=== PATIENT | female | born 1955 | race Caucasian/White ===

== ENCOUNTER 2019-05-26 14:29 | Day surgery (SDC) | payer OTHER, SELFPAY ==
[2019-05-26] VITALS (13 sets, daily range): BP systolic 107–169; BP diastolic 59–113; PULSE 69–92; RESP 16–24; TEMP 36.2–36.6; O2SAT 96–100
--- NOTE | ~2019-05-26 | XR_ITS ---
EXAMINATION: XR chest 2V DATE: 05/26/2019 15:20 INDICATION: Food impaction TECHNIQUE: frontal and lateral views of the chest were obtained. COMPARISON: Chest radiograph dated 11/16/2015 FINDINGS: The lungs remain clear with no focal airspace opacities, pulmonary edema, pleural effusion or pneumot horax. The cardiomediastinal silhouette is normal. Lucent trachea appears patent particularly on the lateral projection. Bilateral peripherally calcified breast implants. Moderate thoracic spondylosis. IMPRESSION: 1. No acute cardiopulmonary disease. Reviewed, dictated and finalized at location A. COLOGIST
--- NOTE | ~2019-05-26 | CT_ITS ---
EXAMINATION: CT chest w con DATE: 05/26/2019 19:07 INDICATION: Esophageal tear. Evaluate for pneumomediastinum. TECHNIQUE: Computed tomography (CT) of the chest was performed with 75 cc Omnipaque 350 intravenous c ontrast. The dose-length product was 167.31 mGy-cm. Automated exposure control and iterative reconstr uction technique were employed. COMPARISON: Chest x-ray dated 05/26/2019 FINDINGS: There is extensive pneumomediastinum extending from the visualized aspects of the neck surr ounding the thyroid gland and carotid arteries extending inferiorly surrounding the esophagus with ga s involving the proximal gastric wall. Site of esophageal perforation cannot definitely be visualized . There are calcified bilateral breast implants. Heart size is normal. Small pleural effusions. No thor acic lymphadenopathy. Debris is noted in the distal esophagus. Fatty infiltration of the liver. Calcified granuloma right lung base. Left lower lobe airspace diseas e, most likely atelectasis. There is apical pleural thickening/scarring. No suspicious pulmonary nodu les or masses. IMPRESSION: 1. Extensive pneumomediastinum, presumably from known esophageal perforation. Abnormal gas extends in to the proximal gastric wall as well as the neck superiorly. 2: Small pleural effusions. Dr. Bedolla discussed with Dr. Brad Rider MD at 05/26/2019 19:24 [employer] MECH[employer]IC. Reviewed, dictated and finalized at location A. NE MECHANIC IMPRESSION: 1. Extensive pneumomediastinum, presumably from known esophageal perforation. A bnormal gas extends into the proximal gastric wall as well as the neck superior ly. 2: Small pleural effusions. Dr. Bedolla discussed with Dr. Brad Rider MD at 05/26/2019 19:24 MARINE MECH[employer]IC.
--- NOTE | 2019-05-26 14:46 | MISC_ITS ---
Emergency Room Visit Note Original report was for two visits for the same patient [id number], added addenda were moved to correct visit, [id number] on 06/10/19. Original report was signed by Reyanldo Hsieh MD on 05/26/19 at 1928. HPI - Skin/Abscess/Foreign Bdy General Chief complaint: Skin/Abscess/Foreign Body Stated complaint: ?FB THROAT Time Seen by Provider: 05/26/19 14:46 Source: patient Mode of arrival: EMS Limitations: no limitations History of Present Illness HPI narrative: This is a 63 year old female that presents to the ER for food impaction. Reports she was eating turkey just prior to arrival. Reports feeling of it being stuck. Reports she has been vomiting up small pieces of turkey since. Reports history of trouble swallowing in the past, but is usually able to get the food back up. Reports pain in her epigastrium. Denies shortness of breath. Related Data Home Medications Medication Instructions Recorded Confirmed acyclovir 400 mg PO DAILY 05/26/19 05/26/19 albuterol sulfate [ProAir HFA] 1 inh INHALATION QID 05/26/19 05/26/19 duloxetine 30 mg PO DAILY 05/26/19 05/26/19 fluticasone propion-salmeterol 1 inh INHALATION Q12H 05/26/19 05/26/19 [Advair Diskus] montelukast [Singulair] 10 mg PO DAILY 05/26/19 05/26/19 Allergies Allergy/AdvReac Type Severity Reaction Status Date / Time MEPERIDINE HCL Allergy Unknown Vomiting Uncoded 05/26/19 14:40 Review of Systems Review of Systems: Narrative: CONSTITUTIONAL: Denies fever CARDIOVASCULAR: Denies chest pain RESPIRATORY: Denies dyspnea. GASTROINTESTINAL: Reports abdominal pain, nausea, vomiting All systems reviewed & are unremarkable except as noted in HPI and below PMFSH Past Medical History Medical History (Updated 05/26/19 @ 16:09 by Sara Dodd PA-C) History of asthma History of depression Exam Narrative: Exam Narrative: GENERAL: Well-appearing, well-nourished, and in no acute distress. HEAD: Normocephalic, atraumatic. EYES: EOMI. ENT: Mucous membranes moist. Oropharynx without tonsillar hypertrophy exudate or other lesions. NECK: Supple. No adenopathy or masses. CHEST: Clear to auscultation. No respiratory distress. No wheezes rales or rhonchi HEART: Regular rate and rhythm. No murmur heard. Normal peripheral pulses. ABDOMEN: Soft, nontender, nondistended, normal active bowel sounds. EXTREMITIES: Normal range of motion. No edema. SKIN: Warm, dry, no rash. NEURO: No focal deficits. Alert and oriented x3. PSYCH: Normal mood and affect Course Consultations Consultation #1: Spoke with Dr. Rider about patient and workup who will take patient to GI lab Date: 05/26/19 Time: 16:15 Vital Signs Vital signs: Vital Signs Temperature 97.8 F 05/26/19 14:37 Pulse Rate 88 05/26/19 14:37 Respiratory Rate 20 05/26/19 14:37 Blood Pressure 169/113 H 05/26/19 14:37 Pulse Oximetry 99 05/26/19 14:37 Temperature 97.8 F 05/26/19 14:37 Pulse Rate 69 05/26/19 16:08 Respiratory Rate 16 05/26/19 16:08 Blood Pressure 150/101 H 05/26/19 16:08 Pulse Oximetry 97 05/26/19 16:08 MDM - Skin/Abscess/Foreign Bdy MDM Narrative Medical decision making narrative: Patient presents the emergency department for food impaction. Patient actively vomiting small pieces of turkey in the ED. She is unable to keep down any water. Patient given IV fluids, glucagon, Ativan, and a dose of Levsin without relief.Patient
[2019-05-26] MEDS: SODIUM CHLORIDE 0.9% IV 500 ML 999 ML IV CONT (15:05)
[2019-05-26] MEDS: GLUCAGON FOR INJ 1 MG VIAL IV PUSH (15:05)
[2019-05-26] MEDS: LORAZEPAM INJ 2 MG/ML VIAL 1 MG IV PUSH (15:06)
[2019-05-26] MEDS: HYOSCYAMINE SULFATE 0.125 MG TABLET PO (15:36)
--- NOTE | 2019-05-26 15:54 | ED.SKABFB ---
HPI - Skin/Abscess/Foreign Bdy General Chief complaint: Skin/Abscess/Foreign Body Stated complaint: ?FB THROAT Time Seen by Provider: 05/26/19 14:46 Source: patient Mode of arrival: EMS Limitations: no limitations History of Present Illness HPI narrative: This is a 63 year old female that presents to the ER for food impaction. Reports she was eating turkey just prior to arrival. Reports feeling of it being stuck. Reports she has been vomiting up small pieces of turkey since. Reports history of trouble swallowing in the past, but is usually able to get the food back up. Reports pain in her epigastrium. Denies shortness of breath. Related Data Home Medications Medication Instructions Recorded Confirmed acyclovir 400 mg PO DAILY 05/26/19 05/26/19 albuterol sulfate [ProAir HFA] 1 inh INHALATION QID 05/26/19 05/26/19 duloxetine 30 mg PO DAILY 05/26/19 05/26/19 fluticasone propion-salmeterol 1 inh INHALATION Q12H 05/26/19 05/26/19 [Advair Diskus] montelukast [Singulair] 10 mg PO DAILY 05/26/19 05/26/19 Allergies Allergy/AdvReac Type Severity Reaction Status Date / Time MEPERIDINE HCL Allergy Unknown Vomiting Uncoded 05/26/19 14:40 Review of Systems Review of Systems: Narrative: CONSTITUTIONAL: Denies fever CARDIOVASCULAR: Denies chest pain RESPIRATORY: Denies dyspnea. GASTROINTESTINAL: Reports abdominal pain, nausea, vomiting All systems reviewed & are unremarkable except as noted in HPI and below PMFSH Past Medical History Medical History (Updated 05/26/19 @ 16:09 by Sara Dodd PA-C) History of asthma History of depression Exam Narrative: Exam Narrative: GENERAL: Well-appearing, well-nourished, and in no acute distress. HEAD: Normocephalic, atraumatic. EYES: EOMI. ENT: Mucous membranes moist. Oropharynx without tonsillar hypertrophy exudate or other lesions. NECK: Supple. No adenopathy or masses. CHEST: Clear to auscultation. No respiratory distress. No wheezes rales or rhonchi HEART: Regular rate and rhythm. No murmur heard. Normal peripheral pulses. ABDOMEN: Soft, nontender, nondistended, normal active bowel sounds. EXTREMITIES: Normal range of motion. No edema. SKIN: Warm, dry, no rash. NEURO: No focal deficits. Alert and oriented x3. PSYCH: Normal mood and affect Course Consultations Consultation #1: Spoke with Dr. Rider about patient and workup who will take patient to GI lab Date: 05/26/19 Time: 16:15 Vital Signs Vital signs: Vital Signs Temperature 97.8 F 05/26/19 14:37 Pulse Rate 88 05/26/19 14:37 Respiratory Rate 20 05/26/19 14:37 Blood Pressure 169/113 H 05/26/19 14:37 Pulse Oximetry 99 05/26/19 14:37 Temperature 97.8 F 05/26/19 14:37 Pulse Rate 69 05/26/19 16:08 Respiratory Rate 16 05/26/19 16:08 Blood Pressure 150/101 H 05/26/19 16:08 Pulse Oximetry 97 05/26/19 16:08 MDM - Skin/Abscess/Foreign Bdy MDM Narrative Medical decision making narrative: Patient presents the emergency department for food impaction. Patient actively vomiting small pieces of turkey in the ED. She is unable to keep down any water. Patient given IV fluids, glucagon, Ativan, and a dose of Levsin without relief.Patient still actively vomiting and uncomfortable. Spoke with Dr. Rider about patient and work-up who will take patient to GI lab Imaging Data Radiologist's impression: ITS Impressions Chest X-Ray 05/26/19 15:22 IMPRESSION: 1. No acute cardiopulmonary disease. Critical Care Time Critical Care Time Critical Care Time: No Discharge Plan Discharge Clinical Impression: Food impaction of esophagus Qualifiers: Encounter type: initial encounter Qualified Code(s): T18.128A - Food in esophagus causing other injury, initial encounter Patient Disposition: Still a Patient Condition: Stable Interventions: Discharge Disposition Last Done: 05/26/19 16:08
--- NOTE | 2019-05-26 16:09 | PC.NURSE ---
pt denies any relief. states pain is more intense and now in epigastric area. gi lab states will come get pt.
[2019-05-26] MEDS: LACTATED RINGERS 1,000 ML 150 ML IV CONT ×2 (16:25→19:49)
--- NOTE | 2019-05-26 16:41 | P.PNAN_ITS ---
Anes - Initial Pre Proc Eval Procedure: Operation Date: 05/26/19 16:00 Proposed Procedures p Esophagogastroduodenoscopy - Brad Rider MD Date/Time: 05/26/19 16:41 Surgeon: Brad Rider MD Pre Op Diagnosis: ?FB THROAT Patient Data Age: 63 Gender: F Height: 1.63 m Weight: 72 kg Last Vital Signs Temp 36.2 C L 05/26/19 16:25 Pulse 89 05/26/19 16:25 Resp 18 05/26/19 16:25 BP 123/96 H 05/26/19 16:25 Pulse Ox 98 05/26/19 16:25 Allergies Allergy/AdvReac Type Severity Reaction Status Date / Time MEPERIDINE HCL Allergy Unknown Vomiting Uncoded 05/26/19 14:40 Home Medications Medication Instructions Recorded Confirmed Type acyclovir 400 mg PO DAILY 05/26/19 05/26/19 History albuterol sulfate [ProAir HFA] 1 inh INHALATION QID 05/26/19 05/26/19 History duloxetine 30 mg PO DAILY 05/26/19 05/26/19 History fluticasone propion-salmeterol 1 inh INHALATION Q12H 05/26/19 05/26/19 History [Advair Diskus] montelukast [Singulair] 10 mg PO DAILY 05/26/19 05/26/19 History Patient hx anesthesia problems: none Family hx anesthesia problems: none [facility] Past Medical History Medical History (Updated 05/26/19 @ 16:09 by Sara Dodd PA-C) History of asthma History of depression Anes - Eval Final PreProcedure Day of Procedure 05/26/19 16:41 Patient weight: overweight Heart: regular rate and rhythm Lungs: clear to auscultation and normal air movement Airway: Mallampati scale class II Neurological: alert and oriented Last oral intake: 4 hours ASA classification: II Emergent: yes Anesthetic plan: proceed Anesthesia type and monitoring: general GIVS and standard monitoring Informed Consent: The patient's anesthetic plan and its attendant risks and benefits were discussed with the patient/family/POA. Questions were solicited and answers provided to the satisfaction of the patient/family/POA.
--- NOTE | 2019-05-26 16:53 | WPDGICN ---
Assessment and Plan Additional Plan This is a 63-year-old white female patient mass see at the request of the emergency room. Patient was in usual state of health till after eating dinner. She subsequently has been unable to eat or swallow. Meal consisted of turkey. Patient complains of substernal pain where she feels this food is caught. She is she has had emesis of small amount of turkey and saliva. She is unable to swallow her own saliva at this time. She states she has had intermittent difficulty swallowing big pieces of food over recent past. She denies any bleeding. She denies any weight loss. Past medical history is significant for asthma, should she also has a history of depression. Medications at home include acyclovir, albuterol, duloxetine, fluticasone, montelukast. She has no stated drug allergies. Family history noncontributary Physical exam reveals her to be alert. Oriented x3. Vital signs stable. HEENT exam unremarkable. Lungs are clear to auscultation percussion. Heart is without murmur or extra sounds. Abdominal exam is soft nontender no past splenomegaly. Impression 1. Food impaction 2. Dysphagia. 3. Asthma. 4. Depression. Plan is for EGD attempt to relieve food impaction. Further recommendations after e GI Consult Note Consult date/time: 05/26/19 16:53 HPI: Sita San is a 63 year old female [facility] Past Medical History Medical History (Updated 05/26/19 @ 16:09 by Sara Dodd PA-C) History of asthma History of depression Meds Home Medications and Allergies Home Medications Medication Instructions Recorded Confirmed Type acyclovir 400 mg PO DAILY 05/26/19 05/26/19 History albuterol sulfate [ProAir HFA] 1 inh INHALATION QID 05/26/19 05/26/19 History duloxetine 30 mg PO DAILY 05/26/19 05/26/19 History fluticasone propion-salmeterol 1 inh INHALATION Q12H 05/26/19 05/26/19 History [Advair Diskus] montelukast [Singulair] 10 mg PO DAILY 05/26/19 05/26/19 History Allergies Allergy/AdvReac Type Severity Reaction Status Date / Time MEPERIDINE HCL Allergy Unknown Vomiting Uncoded 05/26/19 14:40 Vital Signs Vital Signs - 24 hr 05/26/19 14:37 05/26/19 16:08 05/26/19 16:25 Temperature 36.6 C 36.2 C L Pulse Rate 88 69 89 Respiratory Rate 20 16 18 Blood Pressure 169/113 H 150/101 H 123/96 H Pulse Oximetry 99 97 98
[2019-05-26 18:59] LABS: Blood Urea Nitrogen 14 mg/dL (8-26); Estimated CRCL calculation 79 ml/min; Estimated Glomerular Filt Rate > 60
--- NOTE | 2019-05-26 20:19 | SUR.PHASEII ---
PATIENT BEING TRANSFERRED OVER TO THE EMERGENCY ROOM 8 FOR OBSERVATION IN WAIT FOR ANOTHER FACILITY. PER MAHSA, [employer] COUNSELOR, DR HARDY IS AWARE. PATIENT BEING TRANSFERRED WITH IV STILL INTACT AND ANTIBIOTIC RUNNING.
--- NOTE | 2019-05-26 20:39 | SUR.PREOP ---
PATIENT ARRIVED TO PRE-OP COUGHING AND SPITTING INTO EMESIS BAG, PINK TINGE SPUTUM. DOCTOR AND ANESTHESIA AWARE. FAMILY MEMBERS WITH PATIENT.
[2019-05-26] MEDS: MORPHINE SULFATE 4 MG/ML INJ IV PUSH (20:40)
[2019-05-26] MEDS: ONDANSETRON INJ 4 MG/2 ML VIAL IV PUSH (20:40)
--- NOTE | 2019-05-26 20:42 | SUR.PHASEII ---
1849 - DR HARDY ORDERED STAT CT SCAN. PATIENT TRANSFERRED TO CT.
[2019-05-26 20:56] LABS: Basophils Percent Auto 0.2 % (0.2-1.2); Hematocrit 40.4 % (37.0-47.0); Hemoglobin 13.1 g/dL (12.0-15.0); Immature Granulocyte Absolute 0.05 K/mm3 (0.00-0.031); Immature Granulocyte Percent A 0.3 % (0-0.5); Lymphocytes Absolute Auto 0.74 K/mm3 (0.9-3.2); Lymphocytes Percent Auto 4.7 % (18.3-44.2); Mean Corpuscular HGB Conc 32.4 g/dl (32-36); Mean Corpuscular Hemoglobin 30.1 pg (26-34); Mean Corpuscular Volume 92.9 fl (80-100); Mean Platelet Volume 9.5 fl (7.4-10.4); Monocytes Absolute Auto 0.8 K/mm3 (0.1-0.6); Monocytes Percent Auto 4.8 % (2.6-8.5); Neutrophils Absolute Auto 14.3 K/mm3 (1.3-6.7); Platelet Count Result 261 k/mm3 (150-375); Red Blood Count 4.35 M/mm3 (4.2-5.4); Red Cell Distribution Width 14.4 % (11.5-14.5); White Blood Count 15.9 K/mm3 (4.5-10.0)
--- NOTE | 2019-05-26 20:59 | PC.NURSE ---
[facility]ed [facility]
[2019-05-26 21:07] LABS: Partial Thromboplastin Time 20.7 SECONDS (22.3-36.8); Prothrombin Time 12.5 Seconds (11.1-14.7)
[2019-05-26 21:14] LABS: Alanine Aminotransferase 32 U/L (4-35); Albumin Level 4.1 g/dL (3.5-5.1); Alkaline Phosphatase 103 U/L (38-126); Aspartate Amino Transferase 26 U/L (14-36); Bilirubin,Total 1.1 mg/dL (0.2-1.3); Blood Urea Nitrogen 11 mg/dL (7-17); Calcium 9.5 mg/dL (8.4-10.2); Carbon Dioxide 21 mmol/L (22-30); Chloride 103 mmol/L (98-107); Estimated CRCL calculation 79 ml/min; Estimated Glomerular Filt Rate > 60; Glucose 206 mg/dL (65-105); Sodium 137 mmol/L (137-145)
== END 2019-05-26 20:29 | disposition still patient (30) ==
LOC: ANHED 16:09 → ANHENDO 16:14
PROVIDERS: Physician Assistant; Emergency Provider Emergency Medicine; Visit Provider Internal Medicine Gastroenterology
PROC: 0DJ08ZZ Inspection of Upper Intestinal Tract, Via Natural or Artificial Opening Endoscopic (ICD-10-PCS; CPT 43235; principal; 2019-05-26 16:00)
DX: S27.813A Laceration of esophagus (thoracic part), initial encounter (principal); T79.7XXA Traumatic subcutaneous emphysema, initial encounter; T18.128A Food in esophagus causing other injury, initial encounter; K22.2 Esophageal obstruction; J90 Pleural effusion, not elsewhere classified; X58.XXXA Exposure to other specified factors, initial encounter; J45.909 Unspecified asthma, uncomplicated; F32.9 Major depressive disorder, single episode, unspecified
CPT/HCPCS: 43247; 71046; 71260; 80053; 85025; 85610; 85730; 96361; 96374; 96375; 99285; A9270; J1610; J2001; J2060; J2270; J2405; J2543; J2704; J3370; J7040; J7120; Q9967

== ENCOUNTER 2019-05-26 20:31 | Emergency (ER) | payer OTHER, SELFPAY ==
--- NOTE | 2019-05-26 20:38 | MISC_ITS ---
Emergency Room Visit Note Addenda were originally documented on another visit's ER report for [id number]. Addenda moved to correct visit [id number] as its' own report on 06/10/19. Original Addenda signed by Erica Bernal MD on 05/26/19 at 2149. ADDENDUM Patient was reassessed after being evaluated in the GI lab and found to have an esophageal tear with perforation. CT scan did show pneumomediastinum. Patient was started on IV antibiotics, she remained hemodynamically stable while in the ER. She was accepted to transfer to [facility]. Patient, family were updated, patient was transferred at 21: 50 in stable condition. I evaluated the patient after she returned from endoscopy suite, I had [id number] time with this patient. Critical care time, 30-minutes Addendum Documented By: Erica Bernal MD 05/26/192147 Addendum Signed By: <Electronically signed by Erica Bernal MD> 05/26/192148 ADDENDUM Patient in GI Lab was noted to have large esophageal tear with possible perforation. Spoke with Dr. Rider about this who ordered a CT scan to further evaluate. CT scan shows extensive pneumomediastinum. Patient was placed back in the ED and transfer has been arranged to [facility] ER. Dr. Rider arranged transfer. Accepting ER physician is Dr. Guo. Patient given a dose of vanc and zosyn and is getting IV fluids. Patient's vitals are stable. Awaiting transfer to [facility] Addendum Documented By: Sara Dodd 05/26/192037 Addendum Signed By: <Electronically signed by Sara mathews> 05/26/192037 [facility]
== END 2019-05-26 20:51 | disposition left against medical advice (07) ==
LOC: ANHED 05-27 12:06
PROVIDERS: Emergency Provider Emergency Medicine
DX: Z53.21 Procedure and treatment not carried out due to patient leaving prior to being seen by health care provider (principal)
CPT/HCPCS: 99199

== ENCOUNTER 2022-11-26 11:15 | Emergency (ER) | payer MEDICARE, SELFPAY ==
--- NOTE | ~2022-11-26 | XR_ITS ---
EXAMINATION: XR chest 2V DATE: 11/26/2022 12:07 INDICATION: Productive cough TECHNIQUE: PA and lateral views of the chest are obtained. COMPARISON: 05/26/2019 FINDINGS: The lungs are free of acute opacities. No pleural effusion or pneumothorax. The cardiomedia stinal silhouette is normal. There is moderate thoracic spondylosis. Bilateral breast implants are no nii. IMPRESSION: 1. No acute cardiopulmonary abnormality. Reviewed, dictated and finalized at location A.
[2022-11-26 11:30] VITALS: BP 151/95; PULSE 90; RESP 16; TEMP 37.2; O2SAT 97
--- NOTE | 2022-11-26 11:41 | ED.URI ---
HPI - URI/Sore Throat General Chief Complaint: Upper Respiratory Infection Stated Complaint: cough Source: patient and RN notes reviewed History of Present Illness HPI Narrative: 67 yo F Presents to urgent care with complaints of a cough x 1 month. Pt states the cough is productive. Pt reports the cough is worse at nighttime. Denies any fevers, chills, chest pain, SOB, vomiting, sore throat, congestion, or ear pain. Pt has been using Mucinex, Nyquil, cough drops, and her albuterol inhaler without relief. Related Data Home Medications Medication Instructions Recorded Confirmed albuterol sulfate 90 mcg/actuation 1 inh inhalation QID 05/26/19 11/26/22 aerosol inhaler (ProAir HFA) duloxetine 30 mg capsule,delayed 30 mg PO DAILY 05/26/19 11/26/22 release montelukast 10 mg tablet 10 mg PO DAILY 05/26/19 11/26/22 (Singulair) lisinopril 20 1 tablet PO DAILY 11/26/22 11/26/22 mg-hydrochlorothiazide 12.5 mg tablet pantoprazole 40 mg tablet,delayed 40 mg PO DAILY 11/26/22 11/26/22 release Allergies Allergy/AdvReac Type Severity Reaction Status Date / Time MEPERIDINE HCL Allergy Unknown Vomiting Uncoded 11/26/22 11:19 Review of Systems Review of Systems: CONSTITUTIONAL: Denies fever, chills, or sweats. EYES: Denies visual changes, redness, or discharge. ENT: Denies otalgia and sore throat CARDIOVASCULAR: Denies chest pain, palpitations, or edema. RESPIRATORY: cough GASTROINTESTINAL: Denies abdominal pain, nausea, vomiting, or diarrhea. GENITOURINARY: Denies dysuria or hematuria. SKIN: Denies rash or itching. MUSCULOSKELETAL: Denies back pain, joint pain, or myalgia. NEUROLOGIC: Denies headache, numbness, or weakness. Pertinent positives per HPI. [facility] Past Medical History Medical History (Updated 11/26/22 @ 12:26 by Yael Arevalo APRN) History of asthma History of depression Comments At the time of my signature, I reviewed and agree with the nursing past medical, surgical, social, and family history. There is no relevant family history pertinent to the patient complaint. Exam Narrative: GENERAL: This is a well-nourished, well-developed patient, in no apparent distress. HEAD: normocephalic, atraumatic. EYES: Sclera clear/white. Vision is grossly intact. EARS: External ears normal, auditory canals clear and without drainage, TMs normal without perforation. Hearing grossly intact. NOSE: External nose normal with no obvious nasal discharge, nares without redness, no rhinorrhea. Pt sounds congested. THROAT: Mucous membranes moist, posterior pharynx clear. NECK: Neck supple, non-tender without lymphadenopathy, masses or thyromegaly. CARDIOVASCULAR: Regular rate and rhythm without murmurs, gallops, or rubs. RESPIRATORY: Clear to auscultation. Breath sounds equal bilaterally. Slight wheezes noted bilaterally. Pt coughing frequently in exam room. SKIN: warm, intact with no suspicious lesions or rash, good texture and turgor. NEURO: awake, alert, and oriented to person, place and time. There were no obvious focal neurologic abnormalities. Course Course Level of Care: Express Care Visit Vital Signs Vital signs: Vital Signs Temperature 98.9 F 11/26/22 11:30 Pulse Rate 90 11/26/22 11:30 Respiratory Rate 16 11/26/22 11:30 Blood Pressure 151/95 H 11/26/22 11:30 Pulse Oximetry 97 11/26/22 11:30 Oxygen Delivery Room Air 11/26/22 11:30 Temperature 98.9 F 11/26/22 11:30 Pulse Rate 90 11/26/22 11:30 Respiratory Rate 16 11/26/22 11:30 Blood Pressure 151/95 H 11/26/22 11:30 Pulse Oximetry 97 11/26/22 11:30 Oxygen Delivery Room Air 11/26/22 11:30 reviewed MDM - URI/Sore Throat MDM Narrative Medical decision making narrative: Take steroids as directed. May use the inhaler every 4-6 hours as needed for coughing. Increase fluids at home. Avoid any and all smoke. May use a humidifier in the bedroom. Increase your Vitamin C. Follow-up with
[2022-11-26] MEDS: predniSONE 20 MG TABLET 60 MG PO (12:33)
== END 2022-11-26 12:38 | disposition home or self-care (01) ==
PROVIDERS: Emergency Provider Nurse Practitioner Family; PCP Nurse Practitioner Family
DX: J40 Bronchitis, not specified as acute or chronic (principal); J45.909 Unspecified asthma, uncomplicated
CPT/HCPCS: 71046; 99213; G0463; J7512

== ENCOUNTER 2023-01-07 12:47 | Emergency (ER) | payer MEDICARE, SELFPAY ==
--- NOTE | ~2023-01-07 | XR_ITS ---
XR chest 2V DATE: 01/07/2023 14:10 INDICATION: Productive cough for one month. Shortness of breath. Low oxygen saturation. TECHNIQUE: 2 views COMPARISON: 11/26/2022 2 view chest FINDINGS: Heavily calcified bilateral breast implants. Osteopenia. Degenerative spurring of the cervical, thoracic and lumbar spine. Normal heart size. No hilar or mediastinal enlargement. No pulmonary infiltrate or consolidation, pleural effusion or pulmonary vascular congestion or pneumo thorax is detected. IMPRESSION: No active cardiopulmonary disease or significant change since 11/26/2022 Reviewed, dictated and finalized at location L. IMPRESSION: No active cardiopulmonary disease or significant change since 2022
[2023-01-07 13:00] VITALS: O2SAT 92
--- NOTE | 2023-01-07 13:03 | ED.URI ---
HPI - URI/Sore Throat General Chief Complaint: Upper Respiratory Infection Stated Complaint: coughing,not able to sleep Time Seen by Provider: 01/07/23 13:05 Source: patient and RN notes reviewed Mode of arrival: ambulatory Limitations: no limitations History of Present Illness HPI Narrative: 67-year-old female presents with concern for over 1 month history of cough, shortness of breath. She reports she was treated in November with prednisone. She reports she got better for small amount time and in her symptoms return. She reports a history of asthma. She denies history of smoking. She denies rhinorrhea, nasal congestion, sore throat, fever, aches, chills, sweats. MD elicited complaint: cough Related Data Home Medications Medication Instructions Recorded Confirmed albuterol sulfate 90 mcg/actuation 1 inh inhalation QID 05/26/19 01/07/23 aerosol inhaler (ProAir HFA) duloxetine 30 mg capsule,delayed 30 mg PO DAILY 05/26/19 01/07/23 release montelukast 10 mg tablet 10 mg PO DAILY 05/26/19 01/07/23 (Singulair) lisinopril 20 1 tablet PO DAILY 11/26/22 01/07/23 mg-hydrochlorothiazide 12.5 mg tablet pantoprazole 40 mg tablet,delayed 40 mg PO DAILY 11/26/22 01/07/23 release Allergies Allergy/AdvReac Type Severity Reaction Status Date / Time meperidine Allergy Intermediate Vomiting Verified 01/07/23 12:56 Review of Systems Review of Systems: CONSTITUTIONAL: Denies malaise, chills, sweats, or fever. EYES: Denies visual changes, redness, or discharge. ENT: Denies rhinorrhea, congestion, sinus pain, otalgia and sore throat. CARDIOVASCULAR: Denies chest pain, palpitations, or edema. RESPIRATORY: Reports cough, dyspnea. GASTROINTESTINAL: Denies abdominal pain, nausea, vomiting, diarrhea SKIN: Denies rash or itching. MUSCULOSKELETAL: Denies myalgia. NEUROLOGIC: Denies headache. All systems reviewed & are unremarkable except as noted in HPI and below PMFSH Past Medical History Medical History (Updated 01/07/23 @ 13:35 by Valery Fuentes NP) History of asthma History of depression Comments At time of signature, agree with nursing past medical, surgical, social and family history. There is no relevant family history pertinent to the presenting complaint Exam Narrative: GENERAL: Well-appearing, well-nourished, and in no acute distress. HEAD: Normocephalic EYES: PERRLA, conjunctivae clear ENT: Nares clear. Mucous membranes moist. TM pearly marquez with dull light reflex bilaterally; no tragal tenderness. Oropharynx not erythematous without lesions. Tonsils not enlarged and without exudate, no drooling, no hoarseness, no trismus, uvula midline. NECK: Supple. No lymphadenopathy CHEST: Aeration poor, scattered wheeze and rhonchi. No rales, or stridor. No respiratory distress, speaks in full sentences. HEART: Regular rate and rhythm. No murmur heard. SKIN: Warm, dry, no rash. NEURO: Alert and oriented x3. PSYCH: Normal mood and affect Course Course Emergency Course: Patient is aware of diagnosis, understands and agrees to treatment plan. Anticipatory guidance given. Patient agrees to follow-up as directed and is aware of reasons to seek care at the emergency department. Portions of this record may have been created with voice recognition software Level of Care: Express Care Visit Reevaluation(s) Reevaluation #1: Aeration improved, decrease in wheezing, no rhonchi noted Date: 01/07/23 Time: 13:35 Reevaluation #2: Aeration improved with the additional decrease in wheezing after 2nd DuoNeb Date: 01/07/23 Time: 15:02 Vital Signs Vital signs: Reviewed. MDM - URI/Sore Throat MDM Narrative Medical decision making narrative: Differential diagnosis considered: Neri virus, strep pharyngitis, allergic rhinitis, upper respiratory tract infection, sinusitis, rhinosinusitis, nasopharyngitis. viral pharyngitis, otitis media, otitis externa, pneumonia, bronchitis, viral cough syndrome, viral syndrome
[2023-01-07 13:04] VITALS: BP 146/90; PULSE 95; RESP 20; TEMP 36.5; O2SAT 92
[2023-01-07] MEDS: ALBUTEROL SULFATE NEB 2.5 MG/3 ML INH INHALATION ×2 (13:11→14:22)
[2023-01-07] MEDS: IPRATROPIUM BR 0.02% INH SOLN 0.5 MG/2.5 ML VIAL INHALATION ×2 (13:11→14:22)
[2023-01-07 13:45] VITALS: O2SAT 89
[2023-01-07 14:55] VITALS: O2SAT 96
== END 2023-01-07 15:05 | disposition home or self-care (01) ==
PROVIDERS: Emergency Provider Nurse Practitioner; PCP Nurse Practitioner Family
DX: J45.901 Unspecified asthma with (acute) exacerbation (principal)
CPT/HCPCS: 71046; 94640; 99213; G0463

== ENCOUNTER 2024-04-06 14:39 | Emergency (ER) | payer MEDICARE, SELFPAY ==
[2024-04-06 14:47] VITALS: BP 155/81; PULSE 80; RESP 16; TEMP 37.2; O2SAT 100
--- NOTE | 2024-04-06 14:47 | ED.URI ---
HPI - URI/Sore Throat General Chief Complaint: Upper Respiratory Infection Stated Complaint: cough Time Seen by Provider: 04/06/24 14:45 Source: patient Mode of arrival: ambulatory Limitations: no limitations History of Present Illness HPI Narrative: Sadia is a 60-year-old female patient presenting to the clinic today with complaints cough, headache, and sinus congestion x3 days. She denies any fevers, chills, body aches. No shortness of breath or chest pain. States cough is productive with some yellow phlegm. MD elicited complaint: sore throat and nasal congestion Related Data Home Medications ?Medication ?Instructions ?Recorded ?Confirmed ?Last Taken ?Type albuterol sulfate 90 mcg/actuation 1 inh inhalation QID 05/26/19 01/07/23 Unknown History aerosol inhaler (ProAir HFA) Allergies Allergy/AdvReac Type Severity Reaction Status Date / Time meperidine Allergy Intermediate Vomiting Verified 09/09/23 12:47 Review of Systems Review of Systems: Pertinent positives per HPI. Patient denies any fever, chills, rash, visual changes, dizziness, shortness of breath, chest pain, palpitations, nausea, vomiting, diarrhea, constipation, abdominal pain, or any urinary issues. [facility] Past Medical History Medical History (Updated 04/06/24 @ 14:55 by John Little APRN) Anxiety History of depression History of asthma Surgical History Surgical History H/O section Hx of appendectomy Hx of breast implants, bilateral Family History Family History (Updated 09/09/23 @ 14:29 by Magaly Guaman APRN) Father Liver cancer Mother Breast cancer in her 70s Social History Social History (Updated 09/09/23 @ 14:29 by Magaly Guaman APRN) Smoking status: Never smoker Alcohol intake: current Drinks per week: 3 Alcohol use details: beer Living arrangements: with family Additional living arrangements comments: her daughter has moved in with her 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 There is no relevant family history pertinent to the patient complaint. Exam Narrative: General: Well-developed, well nourished, in no apparent distress Head: Normocephalic, atraumatic Eyes: Pupils equally round and reactive to light bilaterally, EOM intact, sclera and conjunctive clear, no discharge, lids normal Ears: TMs intact and clear, ear canals clear, no drainage, grossly hearing normal. Nose: Nares patent, no discharge, no inflammation, no sinus tenderness. Mouth: Oral pharynx without lesions or masses, good dentition, MMM. Neck: Supple, trachea midline, no enlargement of anterior or posterior cervical nodes, no thyroid masses or goiter palpable. Cardio: Regular rate and rhythm, s1 and s2 normal, no murmur appreciated. Resp: Clear to auscultation bilaterally, no rhonchi, rales, wheezing or rubs Course Course Emergency Course: Portions of this record may have been created with voice recognition software. Level of Care: Express Care Visit Vital Signs Vital signs: Vital signs reviewed MDM - URI/Sore Throat MDM Narrative Medical decision making narrative: At the time of visit patient is resting comfortably on the exam table. Patient appears to be nontoxic. Plan: Offer to do COVID testing but patient states she does not believe in COVID. Will treat for a URI and give her prescription for prednisone. Supportive measures were discussed with the patient and they voiced understanding discharge instructions and agrees to treatment plan. Return precautions reviewed Differential Diagnosis Differential diagnosis: Likely upper respiratory infection, otitis media, sinusitis, viral infection, bronchitis, influenza, pharyngitis and other (COVID) Discharge Plan Discharge Clinical Impression: URI (upper respiratory infection) Qualifiers: URI type: unspecified URI Qualified Code(s): J06.9 - Acute upper respiratory infection, unspecified Patient Disposition: Home, Self-Care Condition: Stable Instructions: Antibiotic Form, Upper Respiratory Infection (ED) Additional Instructions: Take prescription medications only as prescribed-prednisone Increase fluids and stay well hydrated Tylenol/motrin for pain/fever Flonase and OTC antihistamines as directed Vicks vapor rub to open sinuses Sinus rinses for congestion Cepacol spray, cough drops, throat lozenges, warm tea with honey/lemon, gargle salt water to soothe throat BRAT diet for diarrhea Clear liquids x 24 hours then advance as tolerated for nausea/vomiting Go to the ED if you develop a worsening in your condition- high fever not controlled by Tylenol or Motrin, dehydration, weakness, lethargy, shortness of breath, or chest pain. Follow up with your PCP in 3-5 days if symptoms persist. Patient Language: Hebrew Prescriptions: New prednisone 20 mg tablet 40 mg PO DAILY 5 Days Qty: 10 0RF No Action duloxetine 60 mg capsule,delayed release(DR/EC) 60 mg PO DAILY Qty: 90 3RF Arnuity Ellipta 100 mcg/actuation blister with device 1 inh inhalation DAILY Qty: 90 3RF lisinopril-hydrochlorothiazide 20-12.5 mg tablet 1 tablet PO DAILY Qty: 90 3RF montelukast [Singulair] 10 mg tablet 10 mg PO DAILY Qty: 90 3RF pantoprazole 40 mg tablet,delayed release (DR/EC) 40 mg PO DAILY Qty: 90 3RF albuterol sulfate [ProAir HFA] 90 mcg/actuation Hfa Aerosol Inhaler 1 inh INHALATION QID Follow-up/Referrals: Brock Wilkinson MD [Primary Care Provider] - Time of Disposition: 14:54 Quality NIHSS Nursing Documentation ED NIHSS nursing documentation: reviewed/agree
== END 2024-04-06 15:00 | disposition home or self-care (01) ==
PROVIDERS: Emergency Provider Nurse Practitioner Family; PCP Family Medicine Adolescent Medicine
DX: J06.9 Acute upper respiratory infection, unspecified (principal); J45.909 Unspecified asthma, uncomplicated
CPT/HCPCS: 99213; G0463

== ENCOUNTER 2024-05-20 18:04 | Emergency (ER) | payer MEDICARE, SELFPAY ==
[2024-05-20 18:19] VITALS: BP 148/87; PULSE 85; RESP 15; TEMP 36.6; O2SAT 97
--- NOTE | 2024-05-20 18:25 | ED.URI ---
HPI - URI/Sore Throat General Chief Complaint: Upper Respiratory Infection Stated Complaint: cough,congestion Time Seen by Provider: 05/20/24 18:44 Source: patient, RN notes reviewed and old records reviewed Mode of arrival: ambulatory Limitations: no limitations History of Present Illness HPI Narrative: Patient presents with complaints of cough and congestion that is been present for about 4 days. She does have asthma, has complaints wheezing. She denies any shortness of breath. She has not had a distress. She denies any fever. Related Data Home Medications ?Medication ?Instructions ?Recorded ?Confirmed ?Last Taken ?Type albuterol sulfate 90 mcg/actuation 1 inh inhalation QID 05/26/19 01/07/23 Unknown History aerosol inhaler (ProAir HFA) Allergies Allergy/AdvReac Type Severity Reaction Status Date / Time meperidine Allergy Intermediate Vomiting Verified 05/20/24 18:21 Review of Systems Review of Systems: All systems reviewed & are unremarkable except as noted in HPI and below Constitutional: Constitutional: Reports no additional constitutional complaints ENT: Reports system reviewed and no additional complaints, except as documented Cardiovascular: Cardiovascular: Reports no additional cardiovascular complaints Respiratory: Respiratory: Reports no additional respiratory complaints, Reports chest congestion, Reports cough and Reports wheezing Gastrointestinal: Gastrointestinal: Reports no additional gastrointestinal complaints PMFSH Past Medical History Medical History Anxiety History of depression History of asthma Surgical History Surgical History H/O section Hx of appendectomy Hx of breast implants, bilateral Family History Family History Father Liver cancer Mother Breast cancer in her 70s Social History Social History Smoking status: Never smoker Alcohol intake: current Drinks per week: 3 Alcohol use details: beer Living arrangements: with family Additional living arrangements comments: her daughter has moved in with her 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 Exam Const: General: cooperative, no acute distress, alert and awake Orientation/consciousness: oriented to person, oriented to place and oriented to time HENMT: Head: normal to inspection Ears: TM's normal bilaterally Mouth: Yes moist mucous membranes Resp: Effort & Inspection: normal respiratory effort and able to speak in complete sentences Auscultation: clear to auscultation bilaterally, no crackles, no rales, no rhonchi, no wheezes and diminished lung sounds Cardio: Palpation: normal PMI Rate: regular rate Rhythm: regular rhythm Heart sounds: S1 normal heart sound present and S2 normal heart sound present Neuro: General: oriented to person, oriented to place and oriented to time Cranial nerves: Yes CN's II-XII intact bilaterally Psych: Appearance: grossly normal Thought process: Normal thought process present Insight: Good insight present (Psych) Judgement: Good judgement present (Psych) Course Course Level of Care: Express Care Visit Vital Signs Vital signs: Vital Signs Temperature 97.9 F 05/20/24 18:19 Pulse Rate 85 05/20/24 18:19 Respiratory Rate 15 05/20/24 18:19 Blood Pressure 148/87 H 05/20/24 18:19 Pulse Oximetry 97 05/20/24 18:19 Oxygen Delivery Room Air 05/20/24 18:19 Temperature 97.9 F 05/20/24 18:19 Pulse Rate 85 05/20/24 18:19 Respiratory Rate 15 05/20/24 18:19 Blood Pressure 148/87 H 05/20/24 18:19 Pulse Oximetry 97 05/20/24 18:19 Oxygen Delivery Room Air 05/20/24 18:19 MDM - URI/Sore Throat MDM Narrative Medical decision making narrative: Patient with asthma, now with congested cough, no distress. Start albuterol, prednisone, benzonatate. Discharge instructions reviewed with patient, as well as provided in writing per nursing staff. The instructions also include specific and strict return/GO TO THE ER as well as f/u information. All questions have been answered, and the patient deny any further questions with discharge and discharge plan. Some parts of this dictation were generated by voice recognition software and may contain typographical and/or grammatical inaccuracies. Differential Diagnosis Differential diagnosis: Likely upper respiratory infection, otitis media, sinusitis, viral infection, influenza and pharyngitis Medical Records Attestation: I reviewed the patient's medical records. Lab Data Attestation: I reviewed the patient's lab results. Discharge Plan Discharge Clinical Impression: Asthma Qualifiers: Asthma severity: unspecified severity Asthma persistence: unspecified Asthma complication type: with acute exacerbation Qualified Code(s): J45.901 - Unspecified asthma with (acute) exacerbation Patient Disposition: Home, Self-Care Condition: Stable Instructions: Antibiotic Form, Asthma (ED) Additional Instructions: Take medications as prescribed. Follow with primary care provider. Emergency department for new or worse symptoms Patient Language: Lithuanian Prescriptions: New prednisone 50 mg tablet 50 mg PO DAILY Qty: 5 0RF albuterol sulfate [Ventolin HFA] 90 mcg/actuation HFA aerosol inhaler 2 puff inhalation QID PRN (Reason: shortness of breath or wheezing) Qty: 8.5 0RF benzonatate 200 mg capsule 200 mg PO TID PRN (Reason: cough) Qty: 30 0RF No Action duloxetine 60 mg capsule,delayed release(DR/EC) 60 mg PO DAILY Qty: 90 3RF Arnuity Ellipta 100 mcg/actuation blister with device 1 inh inhalation DAILY Qty: 90 3RF lisinopril-hydrochlorothiazide 20-12.5 mg tablet 1 tablet PO DAILY Qty: 90 3RF pantoprazole 40 mg tablet,delayed release (DR/EC) 40 mg PO DAILY Qty: 90 3RF albuterol sulfate [ProAir HFA] 90 mcg/actuation Hfa Aerosol Inhaler 1 inh INHALATION QID montelukast 10 mg tablet See Rx Instructions .ROUTE .COMPLEX Qty: 100 2RF Dose Instruction: TAKE 1 TABLET BY MOUTH DAILY Rx Instructions: TAKE 1 TABLET BY MOUTH DAILY Follow-up/Referrals: Brock Wilkinson MD [Primary Care Provider] - 2 Weeks Stand Alone Forms: Work/School Release IP Time of Disposition: 18:52
== END 2024-05-20 19:02 | disposition home or self-care (01) ==
PROVIDERS: Emergency Provider Nurse Practitioner Family; PCP Family Medicine Adolescent Medicine
DX: J45.901 Unspecified asthma with (acute) exacerbation (principal)
CPT/HCPCS: 99213; G0463

== ENCOUNTER 2024-09-28 10:47 | Emergency (ER) | payer MEDICARE, SELFPAY ==
--- NOTE | ~2024-09-28 | XR_ITS ---
[id number] Ordering provider: Meme Last APRN History: . fall, pain . Comparison: None. FINDINGS: Calcified bilateral breast implant. BONES: Fracture of the left fifth and sixth rib is noted. LEFT LUNG: No effusions or infiltrates. No pneumothorax. SOFT TISSUES: Normal. IMPRESSION: Fracture of the left fifth and sixth ribs. Reviewed, dictated and finalized at location A.
--- NOTE | 2024-09-28 10:53 | ED_ITS ---
HPI - Fall General Chief Complaint: Fall Stated Complaint: FALL Time Seen by Provider: 09/28/24 10:50 Source: patient Mode of arrival: ambulatory Limitations: no limitations History of Present Illness HPI Narrative: Patient is a 68-year-old female who presents with left rib pain after fall while camping 4 days ago. She also has a bruise on upper arm and left knee, but is able to move extremity normally. Patient denies hitting her head. Denies any SOB, cough, numbness, tingling or weakness to extremities. Related Data Allergies Allergy/AdvReac Type Severity Reaction Status Date / Time meperidine Allergy Intermediate Vomiting Verified 09/28/24 10:49 Review of Systems 2 Review of Systems: All systems reviewed & are unremarkable except as noted in HPI and below Constitutional: Constitutional: Denies body ache(s), Denies chills, Denies fatigue, Denies fever(s), Denies headache(s), Denies malaise and Denies weakness Eyes: Eyes: Denies blurry vision, Denies irritation and Denies loss of vision ENT: Denies otalgia, Denies headache(s), Denies nasal discharge, Denies sinus pain and Denies sore throat Cardiovascular: Cardiovascular: Denies chest pain, Denies irregular heart rhythm and Denies dyspnea Respiratory: Respiratory: Denies cough, Denies hemoptysis, Denies dyspnea and Reports other (rib pain) Gastrointestinal: Gastrointestinal: Denies abdominal pain, Denies melena, Denies hematochezia, Denies diarrhea, Denies nausea and Denies vomiting Musculoskeletal: Musculoskeletal: Denies back pain, Denies myalgias and Reports arthralgias Integumentary/Breasts: Skin/Breast: Denies pruritus and Denies rash Neurologic: Denies headache(s), Denies loss of vision and Denies weakness Psychiatric: Psychiatric: Reports no additional psychiatric complaints Endocrine: Endocrine: Denies fatigue PMFSH Past Medical History Medical History Anxiety History of depression History of asthma Surgical History Surgical History H/O section Hx of appendectomy Hx of breast implants, bilateral Family History Family History Father Liver cancer Mother Breast cancer in her 70s Social History Social History Smoking status: Never smoker Alcohol intake: current Drinks per week: 3 Alcohol use details: beer Living arrangements: with family Additional living arrangements comments: her daughter has moved in with her 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 There is no relevant family history pertinent to the presenting complaint. Exam 2 Const: General: cooperative, healthy appearing, comfortable, no acute distress and well nourished Nutritional Appearance: well nourished O rientation/consciousness: patient oriented x3 Limitations: no limitations HENMT: Head: normal to inspection, normocephalic and atraumatic Ears: h earing grossly normal bilaterally and external ears normal Face/Nose/Sinus: N ormal external nose present, normal facial exam and face symmetric Face and sinus: normal facial exam and face symmetric Mouth: Yes lip normal Eyes: General: appearance normal, both eyes and all related structures A lignment and Position: alignment normal and position normal Periorbital: p eriorbital findings normal Eyelids: eyelids normal Pupils: Equal, round and reactive pupils present EOM: EOMs intact bilaterally Neck: Neck: normal visual inspection, full ROM and supple Chest: Chest palpation & inspection: normal inspection of the chest and localized rib tenderness with anteroposterior compression left anterior-axillary line involving the 4th rib, involving the 5th rib, involving the 6th rib and involving the 7th rib Resp: Effort & Inspection: normal respiratory effort and able to speak in complete sentences Auscultation: clear to auscultation bilaterally Cardio: Rate: regular rate Rhythm: regular rhythm Heart sounds: S1 normal heart sound present and S2 normal heart sound present GI: Inspection: normal to inspection Skin: General skin exam: normal color and no rashes or lesions noted Full body images: 1. Bruise noted, no swelling or wound 2. Bruise noted, no swelling or wound 3. Bruise noted, no swelling or wound Neuro: General: patient oriented x3 and moves all extremities Cranial nerves: Yes Equal, round and reactive pupils present Speech: normal speech Gait exam (Neuro): Normal gait present Extrem: General: normal to inspection, full ROM and no edema Psych: Appearance: grossly normal and well kempt Mental Status: mental status grossly normal Speech and movement: Normal speech and movement present Affect: normal affect Attitude: cooperative Thought process: Normal thought process present Course Course Emergency Course: Patient is aware of diagnosis, understands and agrees to treatment plan. Anticipatory guidance given. Patient agrees to follow-up as directed and is aware of reasons to seek care at the emergency department. Portions of this record may have been created with voice recognition software Level of Care: Express Care Visit Vital Signs Vital signs: Reviewed MDM - Fall MDM Narrative Medical decision making narrative: Pt well hydrated appearing, in no respiratory distress, hemodynamically stable. Recommend supportive care. The patient is stable at time of discharge the clinical impression was discussed and the patient was given the opportunity to ask questions, which were addressed as completely as possible given the information available at present. Anticipatory guidance and return to care precautions were discussed and the importance of primary care follow-up was stressed and encouraged. The patient voiced understanding of the plan, indications to return, and the need for follow-up. Exam findings show no acute concerns or changes Patient is appropriate for outpatient treatment and follow-up. Differential Diagnosis Differential diagnosis: Likely other (Rib fracture, rib contusion) Medical Records Attestation: I reviewed the patient's medical records. Imaging Data Radiologist's impression: [id number] Ordering provider: Meme Last APRN History: . fall, pain . Comparison: None. FINDINGS: Calcified bilateral breast implant. BONES: Fracture of the left fifth and sixth rib is noted. LEFT LUNG: No effusions or infiltrates. No pneumothorax. SOFT TISSUES: Normal. IMPRESSION: Fracture of the left fifth and sixth ribs. Discharge Plan Discharge Clinical Impression: Closed rib fracture Qualifiers: Encounter type: initial encounter Rib fracture type: multiple ribs Laterality: left Qualified Code(s): S22.42XA - Multiple fractures of ribs, left side, initial encounter for closed fracture Patient Disposition: Home Condition: Stable Instructions: Rib Fracture (ED) Additional Instructions: Pain may get worse for a week and last for up to eight weeks.The most important thing is to get your pain under control. Breathing exercises will not be effective unless your pain is controlled. Take your pain relieving medications as prescribed by your doctor, and continue to speak with your primary care doctor about maintaining your pain relief For pain, you may take: Tylenol 650-1000mg by mouth every 4-6 hours. Do not exceed 4000mg in 24 hours. Advil (Ibuprofen) 600 mg by mouth every 6 hours. Do not exceed 2400mg in 24 hours. 8 AM: Tylenol 11 AM: Ibuprofen 2 PM: Tylenol 5 PM: Ibuprofen 8 PM: Tylenol 11 PM: Ibuprofen 2 AM: Tylenol 5 AM: Ibuprofen Strenuous activities should be avoided for the first 3-4 weeks, after which you can commence physical activity as pain allows. If the pain is increasing you may be doing too much. Cough and deep breath at least 10 times per hour. Try holding a cushion firmly against the painful site when you dumas and cough to decrease the pain. Sit out of bed and keep moving as much as you feel comfortable. This will decrease the risk of developing lung complications. Patient Language: Armenian Prescriptions: No Action Arnuity Ellipta 100 mcg/actuation blister with device 1 inh inhalation DAILY Qty: 90 3RF montelukast 10 mg tablet See Rx Instructions .ROUTE .COMPLEX Qty: 100 2RF Dose Instruction: TAKE 1 TABLET BY MOUTH DAILY Rx Instructions: TAKE 1 TABLET BY MOUTH DAILY pantoprazole 40 mg tablet,delayed release (DR/EC) See Rx Instructions .ROUTE .COMPLEX Qty: 100 0RF Dose Instruction: TAKE 1 TABLET BY MOUTH DAILY Rx Instructions: TAKE 1 TABLET BY MOUTH DAILY duloxetine 60 mg capsule,delayed release(DR/EC) 60 mg PO DAILY Qty: 90 0RF lisinopril-hydrochlorothiazide 20-12.5 mg tablet See Rx Instructions .ROUTE .COMPLEX Qty: 90 0RF Dose Instruction: TAKE 1 TABLET BY MOUTH DAILY Rx Instructions: TAKE 1 TABLET BY MOUTH DAILY Follow-up/Referrals: Brock Wilkinson MD [Primary Care Provider] - 1 Week Stand Alone Forms: Work/School Release IP Time of Disposition: 11:48
[2024-09-28 10:57] VITALS: BP 182/101; PULSE 85; RESP 20; TEMP 37.4; O2SAT 97
== END 2024-09-28 11:55 | disposition home or self-care (01) ==
PROVIDERS: Emergency Provider Nurse Practitioner Family; PCP Family Medicine Adolescent Medicine
DX: S22.42XA Multiple fractures of ribs, left side, initial encounter for closed fracture (principal); W19.XXXA Unspecified fall, initial encounter; J45.909 Unspecified asthma, uncomplicated
CPT/HCPCS: 71101; 99213; G0463

== ENCOUNTER 2025-03-04 14:54 | Emergency (ER) | payer MEDICARE, SELFPAY ==
--- NOTE | ~2025-03-04 | XR_ITS ---
[[id number] ] INDICATION: Left rib pain TECHNIQUE: Frontal projection of the upper left ribs, frontal projection of the lower left ribs, oblique projection of all the left ribs, frontal inspiratory chest x-ray for interpretation. FINDINGS: There are fractures of the left third-sixth ribs. The left third and fourth rib fractures may be acute or subacute. The fifth and sixth rib fractures are chronic. No pneumothorax. There are are partially calcified breast implants bilaterally. No focal air space disease, pulmonary edema, pleural effusion or suspected pneumothorax. IMPRESSION: 1: Multiple left rib fractures with the third and fourth rib fractures appearing acute or subacute. Reviewed, dictated and finalized at location I. RITY INSTALLATION TECHNICIAN IMPRESSION: 1: Multiple left rib fractures with the third and fourth rib fractures appearin g acute or subacute.
[2025-03-04 15:04] VITALS: BP 164/99; PULSE 87; RESP 20; TEMP 37; O2SAT 97
--- NOTE | 2025-03-04 15:17 | ED.FALL ---
HPI - Fall General Chief Complaint: Fall Stated Complaint: Fell; Sharp pain on left side Time Seen by Provider: 03/04/25 15:18 Source: patient, RN notes reviewed and old records reviewed Mode of arrival: ambulatory Limitations: no limitations History of Present Illness HPI Narrative: 69 year old female who presents to [facility] care with complaints of falling in the driveway on Friday with pain to the left lateral chest area which is sharp and intermittent and increases when she takes a deep breath. She reports that she fell sideways onto left shoulder, hip, and knee with those areas no longer hurting. Patient reports no shortness of breath.Patient denies hitting her head and has no pain to her neck is not on any blood thinners. MD complaint: fall Onset (ago): day(s) (4 days ago) Fall from: standing Place fall occurred: home Loss of consciousness: none Symptoms prior to fall: none Location of injury: chest (left rib area) Severity scale (1-10): 5 Related Data Allergies Allergy/AdvReac Type Severity Reaction Status Date / Time meperidine Allergy Intermediate Vomiting Verified 03/04/25 15:19 Review of Systems Review of Systems: CONSTITUTIONAL: Denies fever, chills, or sweats. EYES: Denies visual changes, redness, or discharge. ENT: Denies rhinorrhea, congestion, sore throat, or otalgia. CARDIOVASCULAR: Denies chest pain, palpitations, or edema.reports pain to left rib area lateral to left breast RESPIRATORY: Denies cough or dyspnea. GASTROINTESTINAL: Denies abdominal pain, nausea, vomiting, or diarrhea. GENITOURINARY: Denies dysuria or hematuria. SKIN: Denies rash or itching. MUSCULOSKELETAL: Denies back pain, joint pain, or myalgia. NEUROLOGIC: Denies headache, numbness, or weakness. PSYCHIATRIC: Positive for history of anxiety or depression. All systems reviewed & are unremarkable except as noted in HPI and below PMFSH Past Medical History Medical History BMI 25.0-25.9,adult Anxiety History of depression History of asthma Surgical History Surgical History H/O section Hx of appendectomy Hx of breast implants, bilateral Family History Family History Father Liver cancer Mother Breast cancer in her 70s Social History Social History Smoking status: Never smoker Second hand tobacco smoke exposure: Yes Alcohol intake: current Drinks per week: 3 Alcohol use details: beer Substance use: current Substance use type: marijuana Other substance usage details: gummies Lack of Transportation: No Lack of Food: Never True Current Housing: I Have Housing Concerned About Future Housing: No Difficulty Paying Gas/Electric Bills: No Difficulty Paying for Meds: No Currently Unemployed: No Education: High School Diploma/GED Difficulty w/ Childcare or Family Care: No Living arrangements: with family Additional living arrangements comments: her daughter has moved in with her 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 There is no relevant family history pertinent to the presenting complaint Exam Narrative: GENERAL: Well-appearing, well-nourished, and in no acute distress. HEAD: Normocephalic, atraumatic. EYES: PERRLA and EOMI. ENT: Nares clear, no rhinorrhea or epistaxis. Mucous membranes moist.TM's normal throat pink with no swelling or exudates NECK: Supple. no lymphadenopathy CHEST: Clear to auscultation. No respiratory distress.pain to left lateral breast area over ribs after sustaining fall, no dyspnea increases with deep breathing. SAO2 97% on room air HEART: Regular rate and rhythm. No murmur heard. Normal peripheral pulses. ABDOMEN: Soft, nontender, nondistended, normal active bowel sounds. EXTREMITIES: Normal range of motion. No edema. SKIN: Warm, dry, no rash. NEURO: No focal deficits. Alert and oriented x3. Course Course Emergency Course: Patient is aware of diagnosis, understands and agrees to treatment plan.? Anticipatory guidance given.? Patient agrees to follow-up as directed and is aware of reasons to seek care at the emergency department. Portions of this record may have been created with voice recognition software Level of Care: Express Care Visit Vital Signs Vital signs: Vital Signs Temperature 37.0 C 03/04/25 15:04 Pulse Rate 87 03/04/25 15:04 Respiratory Rate 20 03/04/25 15:04 Blood Pressure 164/99 H 03/04/25 15:04 Pulse Oximetry 97 03/04/25 15:04 Oxygen Delivery Room Air 03/04/25 15:04 Temperature 37.0 C 03/04/25 15:04 Pulse Rate 87 03/04/25 15:04 Respiratory Rate 20 03/04/25 15:04 Blood Pressure 164/99 H 03/04/25 15:04 Pulse Oximetry 97 03/04/25 15:04 Oxygen Delivery Room Air 03/04/25 15:04 reviewed MDM - Fall Differential Diagnosis Differential diagnosis: Likely other (rib fracture, rib contusion, sustained fall) Medical Records Attestation: I reviewed the patient's medical records. Imaging Data Attestation: I personally reviewed and interpreted this imaging study as follows: My impression: acute fracture of 3rd and 4th ribs left side, 5th and 6th are old fractures, no pneumothorax Radiologist's impression: [facility] [address] [place] [address] XRay Report Signed Patient: Sita San : 1955 MR#: [id number] Age: 69 Acct:[id number] Loc: [facility] ADM Date: 03/04/[address]: Ordering Physician: Erica Monge APRN Date of Service: 03/04/25 Procedure(s): XR ribs LT w PA CXR Accession Number(s): [id number] cc: Erica Monge APRN; UNKNOWN,DOCTOR~ [[id number] ] INDICATION: Left rib pain TECHNIQUE: Frontal projection of the upper left ribs, frontal projection of the lower left ribs, oblique projection of all the left ribs, frontal inspiratory chest x-ray for interpretation. FINDINGS: There are fractures of the left third-sixth ribs. The left third and fourth rib fractures may be acute or subacute. The fifth and sixth rib fractures are chronic. No pneumothorax. There are are partially calcified breast implants bilaterally. No focal air space disease, pulmonary edema, pleural effusion or suspected pneumothorax. IMPRESSION: 1: Multiple left rib fractures with the third and fourth rib fractures appearing acute or subacute. Reviewed, dictated and finalized at location I. [employer]CIAL FRONT LOAD DRIVER Please be advised this is a medical document. It is intended for [id number] communication. It is written in medical language and may contain unfamiliar abbreviations or verbiage. Medical documents are intended to carry relevant information, facts as evident, and the clinical opinion of the practitioner at the time of the encounter. This report may have been done utilizing a voice recognition system. Attempts have been made to correct errors. However, there may be uncorrected grammatical, spelling, and recognition errors present. The file time of this note does not necessarily represent the time of service. Dictated By: Ubaldo Bedolla MD 03/04/25 1534 Signed By: <Electronically signed by Ubaldo Bedolla MD in OV> Critical Care Time Critical Care Time Critical Care Time: No Discharge Plan Discharge Clinical Impression: Fracture of rib of left side Qualifiers: Encounter type: initial encounter Rib fracture type: multiple ribs Fracture type: closed Qualified Code(s): S22.42XA - Multiple fractures of ribs, left side, initial encounter for closed fracture Patient Disposition: Home Condition: Stable Instructions: Antibiotic Form, Rib Fracture (ED) Additional Instructions: Tylenol for lesser pain one 650 mg tab in between Ibuprofen Ibuprofen regularly for the next 2-3 days for the inflammation 600 mg po 3 times daily for the next 2-3 days with food Prednisone daily for the next 5 days for inflammation Follow up in ED if any increased pain or any shortness of breath. Follow-up with PCP if further problems or concerns Ice to the area 20-30 minutes 4-6 times a day Elevate above heart If your symptoms persist, change or worsen significantly before you can contact your personal physician then please, without delay, go to the emergency department for further evaluation. Follow-up with PCP in 7-10 days or sooner if needed Follow up with PCP soon in regards to your blood pressure which is elevated above threshold for referral. Blood pressure above 120/80 may indicate pre-hypertension. 164/99 Patient Language: Upper Sorbian Prescriptions: New prednisone 20 mg tablet 40 mg PO DAILY Qty: 10 0RF Rx Instructions: take with food No Action duloxetine 60 mg capsule,delayed release(DR/EC) 60 mg PO DAILY Qty: 90 3RF Arnuity Ellipta 100 mcg/actuation blister with device See Rx Instructions .ROUTE .COMPLEX Qty: 90 3RF Dose Instruction: USE 1 INHALATION BY MOUTH INHALED DAILY Rx Instructions: USE 1 INHALATION BY MOUTH INHALED DAILY lisinopril-hydrochlorothiazide 20-12.5 mg tablet 2 tablet PO DAILY Qty: 180 2RF montelukast 10 mg tablet See Rx Instructions .ROUTE .COMPLEX Qty: 100 2RF Dose Instruction: TAKE 1 TABLET BY MOUTH DAILY Rx Instructions: TAKE 1 TABLET BY MOUTH DAILY fluticasone propionate 50 mcg/actuation spray,suspension 2 spray intranasal DAILY Qty: 48 1RF Rx Instructions: administer into each nostril pantoprazole 40 mg tablet,delayed release (DR/EC) See Rx Instructions .ROUTE .COMPLEX Qty: 100 3RF Dose Instruction: TAKE 1 TABLET BY MOUTH DAILY Rx Instructions: TAKE 1 TABLET BY MOUTH DAILY Follow-up/Referrals: UNKNOWN,DOCTOR [Primary Care Provider] Time of Disposition: 15:58 Quality [place] Coma Scale Eyes: Open Verbal: Oriented and Alert Motor: Follows Commands [place] Coma Total Score: 15
== END 2025-03-04 16:05 | disposition home or self-care (01) ==
PROVIDERS: Emergency Provider Registered Nurse
DX: S22.42XA Multiple fractures of ribs, left side, initial encounter for closed fracture (principal); W19.XXXA Unspecified fall, initial encounter; J45.909 Unspecified asthma, uncomplicated
CPT/HCPCS: 71101; 99213; G0463